=== PATIENT | male | born 1950 | race Caucasian/White ===

== ENCOUNTER → 2019-08-08 | Outpatient (CLI) | payer OTHER, BC | LOC: SJCVC 13:37 | DX: I25.10 Atherosclerotic heart disease of native coronary artery without angina pectoris (principal); I10 Essential (primary) hypertension; I65.23 Occlusion and stenosis of bilateral carotid arteries; I47.1 Supraventricular tachycardia; G47.33 Obstructive sleep apnea (adult) (pediatric); C61 Malignant neoplasm of prostate ==

== ENCOUNTER → 2020-03-18 | Outpatient (CLI) | payer OTHER, BC | LOC: SJCVCIMAG 09:39 | PROVIDERS: ATTEND Internal Medicine | DX: I65.23 Occlusion and stenosis of bilateral carotid arteries (principal); I25.10 Atherosclerotic heart disease of native coronary artery without angina pectoris; G47.33 Obstructive sleep apnea (adult) (pediatric); I10 Essential (primary) hypertension; E78.5 Hyperlipidemia, unspecified; I47.1 Supraventricular tachycardia; Z82.49 Family history of ischemic heart disease and other diseases of the circulatory system; Z85.46 Personal history of malignant neoplasm of prostate; Z79.82 Long term (current) use of aspirin; Z79.899 Other long term (current) drug therapy; Z88.2 Allergy status to sulfonamides; Z88.8 Allergy status to other drugs, medicaments and biological substances; Z98.61 Coronary angioplasty status; Z87.891 Personal history of nicotine dependence ==

== ENCOUNTER 2021-03-22 13:01 | Inpatient (IN) | payer OTHER, BC ==
[~2021-03-22] VITALS: Ht 170.2 cm; Wt 106.3 kg
[2021-03-22 13:06] VITALS: BP 165/84
[2021-03-22 13:25] LABS: ABSOLUTE NEUTROPHILS 4.1 thou/uL (1.4-8.2); BASOPHILS 0.7 % (0.0-2.0); EOSINOPHILS 5.1 % (0.0-3.0); HEMATOCRIT 42.1 % (42.0-52.0); HEMOGLOBIN 14.4 gm/dL (14.0-18.0); MCH 34.6 pg (26.0-34.0); MCHC 34.2 g/dL (28.0-37.0); MONOCYTES 11.5 % (1.0-8.0); PLATELET COUNT 153 thou/uL (150-400); POLYS 54.7 % (36.0-66.0); RBC 4.17 mil/uL (4.50-6.00); RDW 13.4 % (10.5-14.5); WBC 7.5 thou/uL (4.0-11.0)
[2021-03-22 13:32] LABS: CALCIUM 8.8 mg/dL (8.5-10.1); CREATININE 1.2 mg/dL (0.7-1.3); POTASSIUM 4.4 mmol/L (3.5-5.1)
[2021-03-22 14:53] VITALS: BP 147/68
[2021-03-22 15:09] VITALS: BP 158/67
[2021-03-22 15:50] VITALS: BP 172/63
[2021-03-22 19:06] VITALS: BP 159/55
--- NOTE | 2021-03-22 23:23 | NUR ---
PT ARRIVED TO ROOM 219 AT APPROXIMATELY 1600. VSS, AFEBRILE. UP AD PHILIPPE. DENIES CP. REQUESTED HOME MEDS. GOOD URINE OUTPUT. VACCINATED FOR COVID. SR-SB PER MONITOR. CPAP AT NOC. VOIDS PER URINAL. NON-PITTING EDEMA ON LEFT LE R/T CELLULITIS, BELOW KNEE DISCOLORATION. PT PLEASANT, CALM AND COOPERATIVE. GOOD PROGRESS TOWARDS DC GOALS. WILL CONTINUE TO MONTIOR.
[2021-03-23 04:49] VITALS: BP 142/56
[2021-03-23 05:21] LABS: CREATININE 1.1 mg/dL (0.7-1.3); POTASSIUM 4.5 mmol/L (3.5-5.1)
[2021-03-23 05:29] LABS: ALBUMIN 3.4 g/dL (3.4-5.0); PHOSPHORUS 4.2 mg/dL (2.6-4.7)
--- NOTE | 2021-03-23 06:27 | NUR ---
Pt. stated he slept good for 3-4 hrs with CPAP on.Denies any chest discomfort. Making progress towards discharge goals.
[2021-03-23 08:30] VITALS: BP 146/79
[2021-03-23] MEDS ORDERED: ASPIRIN325 PO (08:39)
[2021-03-23] MEDS ORDERED: ATENOLOL 50MG T50 MG PO (08:39)
[2021-03-23] MEDS ORDERED: ALLOPURINOL 30300 M1 PO (08:39)
[2021-03-23] MEDS ORDERED: ZESTRIL40 MG PO (08:53)
[2021-03-23 10:15] VITALS: BP 146/79
[2021-03-23 10:19] VITALS: BP 146/79
--- NOTE | 2021-03-23 12:47 | EKG ---
[place] [address] [facility] [facility] [place] [address] ELECTROCARDIOGRAM REPORT Name: MAGDALENA GALEANO Room #: 219-P [facility] IN M.R.#: [id number] Admission: 03/22/21 Attend Phys: Kal Alexander Discharge: 03/23/21 Date of : 50 Report #: [id number] [facility] ED Test Date: 2021-03-22 Test Time: 13:08:24 Pat Name: MAGDALENA GALEANO Department: Room: 219 Gender: M Auditing Manager: ANA LUISA MOCTEZUMA : 1950 Requested By: Portia Lloyd Order Number: [id number] MD: Franco Tamayo Measurements Intervals [place] Rate: 71 P: -26 IA: 154 QRS: -24 QRSD: 84 T: 77 QT: 400 QTc: 435 Interpretive Statements Sinus rhythm Inferior infarct, old No previous ECG available for comparison Electronically Signed On 03-23-2021 12:47:16 CDT by Franco Tamayo [email or web address] <ELECTRONICALLY SIGNED> By: Franco Tamayo MD, [facility] 03/23/21 1247 1308 1308 Franco Tamayo MD, FACC /EPI
--- NOTE | 2021-03-24 08:46 | HC ---
[facility] [place] [address] CONSULTATION Name: MAGDALENA GALEANO Room #: 219-P [facility] IN M.R.#: [id number] Admission: 03/22/21 Attend Phys: Kal Arnulfo Benjamin Discharge: 03/23/21 Date of : 50 Report #: [id number] THIS REPORT FOR: cc: Roberto Romero MD, Christopher B. MD Lundgren, Craig H. MD [facility] ~ REASON FOR CONSULTATION: Chest pain. HISTORY OF PRESENT ILLNESS: The patient is a 70-year-old gentleman with a history of coronary artery disease with remote stenting, hypertension, PSVT, carotid disease, dyslipidemia, sleep apnea on CPAP, has a history of dyslipidemia and has been intolerant to statins, has done well with Repatha. Yesterday morning while sitting in a chair and watching television, he developed midsternal chest tightness. This was associated with numbness in both of his arms including the fourth and fifth fingers of both hands. He reports that this pain was very mild and is not similar to what he experienced with his heart attack several decades ago. No other associated symptoms. Over the course of about 10-15 minutes, his pain resolved and has not recurred. He does report that when he drank coffee this morning, he had a similar lower sternal and epigastric burning sensation. He has had a history of reflux, although nothing recently. He is active without limitation. His last stress study was normal a year ago. No history of palpitations. No history of fevers, chills, cough or night sweats. He has been vaccinated for COVID. No exposures. No issues or problems related to his pharmacologic regimen. He has an intolerance to statin medications. ALLERGIES: HE HAS ALLERGY TO PLAVIX, SULFA, TICLOPIDINE. MEDICATIONS: Include allopurinol 300 mg daily and aspirin, atenolol 50 mg daily, Repatha every 2 weeks, fish oil, lisinopril 40 mg daily. PAST MEDICAL HISTORY: His medical records have been reviewed and include a history of coronary artery disease, left leg cellulitis with abscess, dyslipidemia, hypertension, prostate cancer with radiation therapy and hormonal therapy, sleep apnea on CPAP, PSVT. SOCIAL HISTORY: He is a former smoker, quit in 1980. FAMILY HISTORY: Notable for premature coronary artery disease. REVIEW OF SYSTEMS: All systems negative except as that noted above. [facility] [address] [place] [address] CONSULTATION Name: MAGDALENA GALEANO Room #: 219-P [facility] IN M.R.#: [id number] Admission: 03/22/21 Attend Phys: Kal Alexander Discharge: 03/23/21 Date of : 50 Report #: [id number] PHYSICAL EXAMINATION: GENERAL: He is a pleasant gentleman in no distress. VITAL SIGNS: Blood pressure is 142/56, heart rate of 50 and regular. He is afebrile, 5 feet 7 inches tall, 220 pounds. HEENT: Neither xanthelasma, subcutaneous xanthomata, oral mucosal or digital cyanosis or kyphoscoliosis present. CHEST: Clear to auscultation and percussion. HEART: Regular rate and rhythm with normal S1, S2. No murmurs or rubs. ABDOMEN: Soft and nontender. EXTREMITIES: Without cyanosis or clubbing. Radial pulses are 2+. NEUROLOGIC: He is alert with a nonfocal exam. LABORATORY DATA: Highly sensitive troponins are negative. Creatinine 1.1, sodium 141, potassium 4.5. White count 7.5, hemoglobin 14, hematocrit 42, platelet count 153. COVID testing is negative. Chest x-ray is negative. EKG, sinus bradycardia, otherwise normal tracing. IMPRESSION: 1. Chest pain with mixed features for angina. 2. Hypertension. 3. Dyslipidemia. 4. Sleep apnea, on CPAP. 5. Remote paroxysmal supraventricular tachycardia without recurrence. RECOMMENDATIONS: No evidence of [place] or ischemia. His symptoms are unusual for ischemic discomfort. I wonder about radiculopathy. He has had a fairly recent nonischemic stress study. Outpatient followup stress testing will be scheduled. I have discussed this with the patient in detail. Thank you for asking me to participate in his care. <ELECTRONICALLY SIGNED> By: Franco Tamayo MD, FACC 03/24/21 0846 0741 0805 Franco Tamayo MD, FACC /nt
[2021-04-03] MEDS ORDERED: [UNRECOGNIZED DRUG - OTHER] (07:42)
[2021-04-03] MEDS ORDERED: FISH OIL 1,0001 EAC9 PO (07:43)
[2021-04-03] MEDS ORDERED: TURMERIC1 GM PO (07:45)
[2021-04-03] MEDS ORDERED: CLARITIN10 MG PO (07:46)
== END 2021-03-23 11:51 | disposition home or self-care (01) | DRG 303 ==
LOC: ER 13:01 → EROBS 14:25 → 2N 15:35
PROVIDERS: Emergency Medicine; ADMIT Hospitalist; ATTEND Hospitalist
PROC: 5A09357 Assistance with Respiratory Ventilation, Less than 24 Consecutive Hours, Continuous Positive Airway Pressure (ICD-10-PCS; principal; 2021-03-22)
DX: I25.119 Atherosclerotic heart disease of native coronary artery with unspecified angina pectoris (principal); I47.1 Supraventricular tachycardia; I10 Essential (primary) hypertension; M10.9 Gout, unspecified; G47.30 Sleep apnea, unspecified; E78.5 Hyperlipidemia, unspecified; K21.9 Gastro-esophageal reflux disease without esophagitis; Z20.822 Contact with and (suspected) exposure to COVID-19; Z85.46 Personal history of malignant neoplasm of prostate; Z88.2 Allergy status to sulfonamides; I25.2 Old myocardial infarction; Z87.891 Personal history of nicotine dependence; Z72.89 Other problems related to lifestyle; Z95.5 Presence of coronary angioplasty implant and graft; Z88.8 Allergy status to other drugs, medicaments and biological substances; Z92.3 Personal history of irradiation
CPT/HCPCS: 10081

== ENCOUNTER → 2021-03-25 | Outpatient (CLI) | payer OTHER, BC ==
[~2021-03-25] MED LIST: ALLOPURINOL 30300 M1 PO; ASPIRIN325 PO; ATENOLOL 50MG T50 MG PO; CLARITIN10 MG PO; FISH OIL 1,0001 EAC9 PO; TURMERIC1 GM PO; ZESTRIL40 MG PO; [UNRECOGNIZED DRUG - OTHER]
== END ==
LOC: SJCVCIMAG 07:06
PROVIDERS: ATTEND Internal Medicine
DX: I25.119 Atherosclerotic heart disease of native coronary artery with unspecified angina pectoris (principal); I10 Essential (primary) hypertension; E78.5 Hyperlipidemia, unspecified; I65.23 Occlusion and stenosis of bilateral carotid arteries; I47.1 Supraventricular tachycardia; G47.33 Obstructive sleep apnea (adult) (pediatric); C61 Malignant neoplasm of prostate; E78.00 Pure hypercholesterolemia, unspecified; Z79.899 Other long term (current) drug therapy; Z87.891 Personal history of nicotine dependence; Z72.89 Other problems related to lifestyle; Z88.2 Allergy status to sulfonamides; Z88.1 Allergy status to other antibiotic agents; Z88.8 Allergy status to other drugs, medicaments and biological substances; Z79.82 Long term (current) use of aspirin

== ENCOUNTER → 2021-04-03 | Outpatient (CLI) | payer OTHER, BC ==
[~2021-04-03] VITALS: Ht 170.2 cm; Wt 99.8 kg
[2021-04-03 07:33] VITALS: BP 146/83
--- NOTE | 2021-04-03 10:34 | CATHLAB ---
[facility] [place] [address] INVASIVE PROCEDURE REPORT Name: MAGDALENA GALEANO Room #: REG [facility] Rashida.#: [id number] Admission: 04/03/21 Attend Phys: Franco Tamayo MD, Discharge: Date of : 50 Report #: [id number] THIS REPORT FOR: cc: Laron Holguin MD, David W. MD Lundgren, Craig H. MD [facility] ~ APPROVED REPORT Study performed: 04/03/2021 07:31:44 Patient Details Patient Status: Out-Patient Room #: The patient is a 70 year-old male Event Personnel Franco Tamayo Program Director Scouting, Sade Arreaga RTClarke Monitor, Immanuel Em RN RN, Ember Rice Scrub Procedures Performed Art Access - R femoral artery* Left Heart Cath w/or w/o Coronaries [id number] [facility] Hemostasis w/ Mynx 85430 Initial Mod Sed Same Phys/QHP Gr5y [id number] Mod Sed Same Phys/QHP Ea [id number] Procedure Narrative The patient was brought electively to the Cardiac Catheterization Laboratory and was prepped and draped in a sterile manner. The Right Groin^ was infiltrated with 1% Lidocaine subcutaneous anesthesia. A PINNACLE 6FR Sheath #[id number] sheath was inserted into the RFA^. Coronary angiography was performed using coronary diagnostic catheters. The right coronary system was accessed and visualized with a JR4 catheter. The left coronary system was accessed and visualized with a JL4 catheter. The left ventricle was accessed and visualized with a PIGTAIL catheter. Left ventriculogram was performed in 30 degree projection. Closure device was deployed with a Fr MYNXGRIP 6/7F #[id number]. The patient tolerated the procedure well and there were no complications associated with the procedure. There was no hematoma. Intraoperative Conscious Sedation Sedation start time: 8:17 Case end Time: 8:48 Fentanyl 50 mcg Versed 1 mg Fluoro Time: 2.40 minutes [facility] [place] [address] INVASIVE PROCEDURE REPORT Name: MAGDALENA GALEANO [id number] Admission: 04/03/21 Attend Phys: Franco Tamayo, Discharge: Date of : 50 Report #: [id number] Dose: DAP 9953.40 cGycm2 1341 mGy Contrast Type and Amount: Omnipaque 115 ml Coronary Angiography The patient's coronary anatomy is right dominant. Diagnostic Cath Left Main Cleft-like distal 60% left main stenosis LAD Fairly long 75% proximal to mid LAD stenosis Diagonal 1 Small first diagonal branch with moderate proximal plaquing Diagonal 2 Small second diagonal branch with mild proximal plaquing Circumflex The circumflex is large but nondominant and comprised of 3 marginal branches. Mild ostial plaquing OM1 Small OM1, normal OM2 Large OM 2, angiographically normal OM3 Small distally arising third marginal branch with mild proximal plaquing Right Coronary 75-80% mid right coronary intrastent stenosis R PDA Normal posterior descending RPLV Normal posterior lateral branch Left Ventriculography The left ventricle is normal in size with normal contractility. The left ventricular ejection fraction is estimated to be 60-65%. Left ventricular wall motion abnormalities are not present. There is no mitral insufficiency. Hemodynamics The aortic pressure is 156/71 mmHg with a mean of 49 mmHg. The left ventricular pressure is 147/8 mmHg with a mean of mmHg. The left ventricular end diastolic pressure is 36 mmHg. Conclusion 1. Normal global and regional left ventricular systolic function. EF 65% 2. Cleft-like, ulcerated 60% distal left main stenosis 3. 75% proximal to mid LAD stenosis 4. Minimal circumflex plaquing, nondominant 5. Mid right coronary intrastent stenosis 75-80% [facility] [address] [place] [address] INVASIVE PROCEDURE REPORT Name: MAGDALENA GALEANO Room #: REG CL [facility]#: [id number] Admission: 04/03/21 Attend Phys: Franco Tamayo, Discharge: Date of : 50 Report #: [id number] Recommendations CABG <ELECTRONICALLY SIGNED> By: Franco Tamayo MD, [facility] 04/03/21 1034 1034 1034 Franco Tamayo MD, FACC /INF
[2021-04-03 11:35] LABS: URINE BILIRUBIN NEGATIVE (Negative); URINE BLOOD NEGATIVE (Negative); URINE CLARITY CLEAR; URINE COLOR YELLOW; URINE GLUCOSE-RANDOM* NEGATIVE (Negative); URINE KETONES NEGATIVE (Negative); URINE LEUKOCYTES-REFLEX NEGATIVE (Negative); URINE NITRITE-REFLEX NEGATIVE (Negative); URINE PROTEIN (DIPSTICK) NEGATIVE (Negative); URINE SPECIFIC GRAVITY 1.015 (1.005-1.035); URINE UROBILINOGEN 0.2 E.U./dl (0.2-1.0)
--- NOTE | 2021-04-04 12:31 | EKG ---
[place] [address] [facility] [place] [address] ELECTROCARDIOGRAM REPORT Name: MAGDALENA GALEANO Room #: REG CLPipe Mendes#: [id number] Admission: 04/03/21 Attend Phys: Franco Tamayo MD, Discharge: Date of : 50 Report #: [id number] [facility] Test Date: 2021-04-03 Test Time: 09:43:17 Pat Name: MAGDALENA GALEANO Department: Room: Gender: Solar Pv Installer: ZOE : 1950 Requested By: Franco Tamayo Order Number: [id number] MD: Franco Tamayo Measurements Intervals [place] Rate: 66 P: -25 MS: 169 QRS: -16 QRSD: 87 T: 42 QT: 407 QTc: 427 Interpretive Statements Sinus rhythm Inferior infarct, old Poor R wave progression Compared to ECG 03/22/2021 13:08:24 No significant changes Electronically Signed On 04-04-2021 12:31:05 CDT by Franco Tamayo [email or web address] <ELECTRONICALLY SIGNED> By: Franco Tamayo MD, [facility] 04/04/21 1231 0943 0943 Franco Tamayo MD, FACC /EPI
== END | disposition home or self-care (01) ==
LOC: CATH 06:28
PROVIDERS: Surgery Vascular Surgery; ATTEND Internal Medicine
DX: I25.10 Atherosclerotic heart disease of native coronary artery without angina pectoris (principal); E78.5 Hyperlipidemia, unspecified; I10 Essential (primary) hypertension; M10.9 Gout, unspecified; G47.30 Sleep apnea, unspecified; I25.2 Old myocardial infarction; Z95.1 Presence of aortocoronary bypass graft; Z98.890 Other specified postprocedural states; Z79.899 Other long term (current) drug therapy; Z85.46 Personal history of malignant neoplasm of prostate; Z87.891 Personal history of nicotine dependence; Z79.82 Long term (current) use of aspirin